=== PATIENT | female | born 1975 | race African-American/Black ===

== ENCOUNTER 2018-01-19 18:23 | Emergency (ER) | payer OTHER ==
[~2018-01-19] VITALS: Ht 167.6 cm; Wt 75.0 kg
[2018-01-19] MEDS ORDERED: SODIUM CHLORIDE 0.9% 1,000 ML IV ONE ×2 (18:45)
[2018-01-19] MEDS ORDERED: KETOROLAC 15MG/ML VIAL IV ONE (18:45)
[2018-01-19 19:22] LABS: BASOPHILS % 0.4 % (0.0-2.0); EOSINOPHILS % 0.9 % (0.0-5.0); HEMATOCRIT. 39.7 % (36.0-48.0); HEMOGLOBIN. 13.6 g/dL (12.0-16.0); LYMPHOCYTES % 18.4 % (20.0-50.0); MEAN CORPUSCULAR HEMOGLOBIN 31.8 pg (28.0-32.0); MEAN CORPUSCULAR VOLUME 93.1 fL (81.0-99.0); MEAN PLATELET VOLUME 8.6 fl (7.4-10.4); MONOCYTES % 8.7 % (2.0-8.0); NEUTROPHILS % 71.6 % (40.0-76.0); PLATELET 166 x1000/uL (130-400); RED BLOOD CELL COUNT 4.26 mill/uL (4.2-5.4); RED CELL DISTRIBUTION WIDTH 12.9 % (11.6-14.6)
[2018-01-19 19:23] LABS: CHLORIDE 100 mEq/L (98-107)
[2018-01-19 19:40] LABS: CLARITY URINE CLEAR (CLEAR); COLOR URINE YELLOW (YELLOW); KETONES URINE NEGATIVE (NEGATIVE); LEUKOCYTE ESTERASE URINE NEGATIVE (NEGATIVE); NITRITE URINE NEGATIVE (NEGATIVE); OCCULT BLOOD URINE NEGATIVE (NEGATIVE); PROTEIN URINE NEGATIVE (NEGATIVE); SPECIFIC GRAVITY URINE 1.017 (1.005-1.030)
[2018-01-19] MEDS ORDERED: MAGNESIUM/ALUMINUM HYDROXIDE/SIMETHICONE 30ML UDC PO ONE (20:00)
[2018-01-19] MEDS ORDERED: KETOROLAC 30MG/ML VIAL IM ONE (20:15)
[2018-01-19 20:47] VITALS: BP 121/68
== END 2018-01-19 20:37 | disposition home or self-care (01) ==
LOC: ER 18:23
DX: R10.0 Acute abdomen (principal); N89.8 Other specified noninflammatory disorders of vagina
CPT/HCPCS: 36415; 76830; 76856; 80053; 81003; 81025; 85025; 96372; 99285; J1885; J7030

== ENCOUNTER 2018-12-08 15:09 | Emergency (ER) | payer OTHER ==
[~2018-12-08] VITALS: Ht 172.7 cm; Wt 86.0 kg
[2018-12-08] MEDS ORDERED: IBUPROFEN 600MG TABLET PO ONE (15:30)
[2018-12-08 16:36] VITALS: BP 143/93
== END 2018-12-08 16:34 | disposition home or self-care (01) ==
LOC: ER 15:09
DX: M79.671 Pain in right foot (principal); F17.200 Nicotine dependence, unspecified, uncomplicated; Z98.890 Other specified postprocedural states
CPT/HCPCS: 73630; 99283

== ENCOUNTER → 2022-05-22 | Outpatient (CLI) | payer OTHER | END | disposition home or self-care (01) | LOC: RAD 13:12 | PROVIDERS: ATTEND Radiology Diagnostic Radiology | DX: Z12.31 Encounter for screening mammogram for malignant neoplasm of breast (principal) | CPT/HCPCS: 77063; 77067 ==

== ENCOUNTER 2024-04-12 10:35 | Emergency (ER) | payer OTHER ==
[~2024-04-12] VITALS: Ht 172.7 cm; Wt 93.4 kg
[2024-04-12 10:40] VITALS: O2SAT 97
[2024-04-12] MEDS: LORAZEPAM 2MG/ML INJ IV ONE (11:12)
[2024-04-12 11:30] LABS: BASOPHILS % 0.5 % (0.0-2.0); EOSINOPHILS % 0.6 % (0.0-5.0); HEMATOCRIT. 40.9 % (36.0-48.0); LYMPHOCYTES % 26.8 % (20.0-50.0); MEAN CORPUSCULAR HEMOGLOBIN 32.6 pg (28.0-32.0); MEAN CORPUSCULAR HGB CONC 34.2 g/dL (31.0-37.0); MEAN CORPUSCULAR VOLUME 95.5 fL (81.0-99.0); MEAN PLATELET VOLUME 8.4 fl (7.4-10.4); MONOCYTES % 6.4 % (2.0-8.0); NEUTROPHILS % 65.7 % (40.0-76.0); PLATELET 204 x1000/uL (130-400); RED BLOOD CELL COUNT 4.29 mill/uL (4.2-5.4); RED CELL DISTRIBUTION WIDTH 12.3 % (11.6-14.6)
[2024-04-12 11:31] LABS: CHLORIDE 106 mEq/L (98-107); POTASSIUM 3.7 mEq/L (3.5-5.1); SODIUM 141 mEq/L (136-145)
[2024-04-12 11:32] LABS: CALCIUM 8.8 mg/dL (8.7-10.4); CARBON DIOXIDE 22 mEq/L (21-32)
[2024-04-12 11:37] LABS: CREATININE 0.7 mg/dL (0.6-1.0); GLUCOSE 85 mg/dL (70-105); TROPONIN I HIGH SENSITIVITY 15 ng/L (3.0-34); UREA NITROGEN BLOOD 10 mg/dL (9-23)
[2024-04-12] MEDS: CLONIDINE 0.1MG TABLET PO ONE (13:27)
[2024-04-12 13:40] VITALS: BP 161/91; PULSE 97; RESP 15; TEMP 36.8; O2SAT 95
[2024-04-12] MEDS: IOHEXOL-350 100 ML BOTTLE ONE (15:21)
== END 2024-04-12 15:55 | disposition home or self-care (01) ==
LOC: ER 10:47
DX: R07.9 Chest pain, unspecified (principal); R00.0 Tachycardia, unspecified; Z90.49 Acquired absence of other specified parts of digestive tract; Z20.822 Contact with and (suspected) exposure to COVID-19
CPT/HCPCS: 99285; 96374; 71275; 71045; 87426; 80048; 83880; 85025; 85379; 84484; 87804 ×2; 36415; 93005; Q9967; J2060